=== PATIENT | female | born 2005 | race African-American/Black ===

== ENCOUNTER 2025-01-26 16:20 | Observation (INO) | payer MEDICAID ==
[~2025-01-26 16:20] MED LIST: NAPR-957 PO
[2025-01-26 18:12] LABS: Urine Protein, UAD Negative (Negative)
[2025-01-26 18:25] LABS: Vaginal Trichomonas Not Present
[2025-01-26 18:26] LABS: Vaginal Bacteria Few; Vaginal Clue Cells None Seen; Vaginal Epithelial Cells Few
[2025-01-26 18:32] LABS: Amphetamine Screen, Urine Neg (NEGATIVE); Barbiturate Scree,Urine Neg (NEGATIVE); Benzodiazephine Screen, Urine Neg (NEGATIVE); Cannabinoid Screen, Urine Neg (NEGATIVE); Cocaine Screen, Urine Neg (NEGATIVE); Opiate Scree,Urine Neg (NEGATIVE); Phencyclidine Screen, Urine Neg (NEGATIVE)
[2025-01-26 18:37] LABS: Hematocrit 40.4 % (36.0-46.0); Hemoglobin 14.1 g/dL (12.2-16.2); Mean Corpuscular Hemoglobin 31.5 pg (28.0-32.0); Mean Corpuscular Volume 90.0 fL (80.0-100.0); Nucleated Red Blood Cells % 0.0 %
--- NOTE | 2025-01-26 18:41 | DVH ---
OB ULTRASOUND, LIMITED CLINICAL INDICATION: unknown records TECHNIQUE: Multiple grayscale ultrasound and M-mode images were obtained of the pelvis for evaluation of intrauterine . COMPARISON: None FINDINGS: A single living fetus is seen in cephalic presentation. Biparietal diameter: 8.59 cm (34 weeks, 4 days) Head Circumference: 31.53 cm (35 weeks, 3 days) Abdomen Circumference: 28.4 cm (33 weeks, 0 days) Femur Length: 6.86 cm (35 weeks, 2 days) Estimated weight: 2328 grams (+/- 349 grams). Placenta: Anterior. Amniotic fluid: Visibly normal. RORY 9.15 cm heart rate: 148 beats/min. A complete anatomic survey was not performed on this exam. Cervix is 3.6 cm and closed. IMPRESSION: 1. Single living intrauterine with an estimated gestational age of 34 weeks, 4 days, lea esponding to an estimated date of delivery of 03/05/2025.
[2025-01-26 18:57] LABS: INR 0.97 (0.9-1.15); Partial Thromboplastin Time 29.3 SEC (24.5-34.5); Prothrombin Time 10.3 sec (9.3-11.8)
[2025-01-26 18:59] LABS: Alanine Aminotransferase 29 U/L (7-40); Albumin 4.2 g/dL (3.2-4.8); Alkaline Phosphatase 109 U/L (46-116); Anion Gap 12 (5-15); BUN/Creatinine Ratio 8.8 (10.0-20.0); Bilirubin, Total 0.7 mg/dL (0.2-1.0); Blood Urea Nitrogen < 5 mg/dL (9-23); Calcium 9.6 mg/dL (8.7-10.4); Carbon Dioxide 21 mmol/L (20-31); Chloride 107 mmol/L (98-107); Glucose 69 mg/dL (74-106); Potassium 4.1 mmol/L (3.5-5.1); Sodium 140 mmol/L (136-145); Total Protein 7.6 g/dL (5.7-8.2)
[2025-01-26] MEDS ORDERED: PREN1TAB71 PO (19:21)
--- NOTE | 2025-01-26 19:29 | DVHDS2 ---
Physician Discharge Progress N Final Diagnosis: Intact membranes, not in labor Operations or Procedures: Operations or Procedures S: 19y/o IUP @ 35.3 weeks GA arrives with complaints of LOF that happened immediately after showering at 1500 and did not reoccur. Patient reports adequate PNC by Dr. Torres, uncomplicated. Patient reports planning to return to [facility] to deliver baby. Denies UCs/VB/CLIFTON/vision changes/RUQ pain. Endorses +FM. PMH: Denies PSH: Denies FMH: Denies O: VSS- See CPN EFM Category 1 UC's Q2-8min, mild. abdomen palpates soft OB complete US with cervical length: WNL SSE by RN: negative nitrazine and pooling SVE: Closed/Thick/High by RN labs ordered GBS collected Labs Test 01/26/25 18:00 01/26/25 17:42 01/26/25 16:59 01/26/25 16:54 Range/Units Prothrombin Time 10.3 9.3-11.8 sec Prothrombin Time INR 0.97 0.9-1.15 Activated Partial Thromboplast Time 29.3 24.5-34.5 SEC Sodium Level 140 136-145 mmol/L Potassium Level 4.1 3.5-5.1 mmol/L Chloride Level 107 98-107 mmol/L Carbon Dioxide Level 21 20-31 mmol/L Anion Gap 12 5-15 Blood Urea Nitrogen < 5 L 9-23 mg/dL Creatinine 0.57 0.550-1.02 mg/dL Glomerular Filtration Rate Calc 134 >90 mL/min BUN/Creatinine Ratio 8.8 L 10.0-20.0 Serum Glucose 69 L 74-106 mg/dL Calcium Level 9.6 8.7-10.4 mg/dL Total Bilirubin 0.7 0.2-1.0 mg/dL Aspartate Amino Transferase (AST) 22 13-40 U/L Alanine Aminotransferase (ALT) 29 7-40 U/L Alkaline Phosphatase 109 46-116 U/L Total Protein 7.6 5.7-8.2 g/dL Albumin 4.2 3.2-4.8 g/dL Treponema pallidum Antibody Non-reactive Negative Rubella Antibody Positive White Blood Count 12.9 H 4.4-10.8 10^3/uL Red Blood Count 4.49 4.0-5.20 10^6/uL Hemoglobin 14.1 12.2-16.2 g/dL Hematocrit 40.4 36.0-46.0 % Mean Corpuscular Volume 90.0 80.0-100.0 fL Mean Corpuscular Hemoglobin 31.5 28.0-32.0 pg Mean Corpuscular Hemoglobin Concent 34.9 32.0-36.0 g/dL Red Cell Distribution Width 12.6 11.8-14.3 % Platelet Count 178 140-450 10^3/uL Mean Platelet Volume 9.3 6.9-10.8 fL Neutrophils (%) (Auto) 79.0 37.0-80.0 % Lymphocytes (%) (Auto) 12.7 10.0-50.0 % Monocytes (%) (Auto) 7.2 0.0-12.0 % Eosinophils (%) (Auto) 0.8 0.0-7.0 % Basophils (%) (Auto) 0.3 0.0-2.0 % Neutrophils # (Auto) 10.2 H 1.6-8.6 10 ^3/uL Lymphocytes # (Auto) 1.6 0.4-5.4 10 ^3/uL Monocytes # (Auto) 0.9 0-1.3 10 ^3/uL Eosinophils # (Auto) 0.1 0-0.8 10 ^3/uL Basophils # (Auto) 0 0-0.2 10 ^3/uL Nucleated Red Blood Cells 0.0 % Urine Opiates Screen Neg NEGATIVE Urine Fentanyl Screen Neg NEGATIVE Urine Barbiturates Screen Neg NEGATIVE Urine Phencyclidine Screen Neg NEGATIVE Urine Amphetamines Screen Neg NEGATIVE Urine Benzodiazepines Screen Neg NEGATIVE Urine Cocaine Screen Neg NEGATIVE Urine Cannabinoids Screen Neg NEGATIVE Urine Color Light-yellow Yellow Urine Clarity Clear Clear Urine pH 6.5 5.0-9.0 Urine Specific Otis 1.011 1.001-1.035 Urine Protein Negative Negative Urine Ketones Negative Negative Urine Blood Negative Negative /uL Urine Nitrite Negative Negative Urine Bilirubin Negative Negative Urine Urobilinogen Normal Negative mg/dL Urine Leukocyte Esterase 1+ Negative /uL Urine RBC 1 0 - 4 /hpf Urine Microscopic WBC 2 0-5 /HPF Urine Squamous Epithelial Cells Few <5 /hpf Urine Bacteria Few H None Seen /hpf Urine Glucose Normal Normal mg/dL Test 01/26/25 16:30 Range/Units Placental [id number]-1-[id number] Negative Vaginal WBC (Wet Prep) Rare Vaginal RBC (Wet Prep) Rare Vaginal Epithelial Cells (Wet Prep) Few Vaginal Bacteria (Wet Prep) Few Vaginal Trichomonas (Wet Prep) Not present Vaginal Yeast (Wet Prep) None seen Vaginal Clue Cells (Wet Prep) None seen A: 19y/o IUP @ 35.3 weeks Ruled out ROM Patient not in labor P: Discharge patient home to follow up with primary OB as scheduled on 01/29/25 PreE and PTL precautions given, [facility] endorsed Return to hospital PRN Dr. Reddy consulted, agrees with POC Other Interventions Other Interventions [place] [id number] Ph: [phone] DIAGNOSTIC IMAGING Diagnostic Imaging Report : [id number] Signed PATIENT: PRINCESS JOON ACCT: [id number] UNIT: [id number] : 2005 LOC: [facility] ROOM / BED: TRIAGE1 / A AGE / SEX: 19 / F ADM STATUS: ADM IN SERVICE 173 ORDERING PHYSICIAN: TOMEKA MORIN CNM PROCEDURE(s): OBUS - OB ULTRASOUND COMP GTR 14 WKS REASON: unknown records ORDER NUMBER(s): [id number], ACCESSION NUMBER(s): [id number] OB ULTRASOUND, LIMITED CLINICAL INDICATION: unknown records TECHNIQUE: Multiple grayscale ultrasound and M-mode images were obtained of the pelvis for evaluation of intrauterine . COMPARISON: None FINDINGS: A single living fetus is seen in cephalic presentation. Biparietal diameter: 8.59 cm (34 weeks, 4 days) Head Circumference: 31.53 cm (35 weeks, 3 days) Abdomen Circumference: 28.4 cm (33 weeks, 0 days) Femur Length: 6.86 cm (35 weeks, 2 days) Estimated weight: 2328 grams (+/- 349 grams). Placenta: Anterior. Amniotic fluid: Visibly normal. RORY 9.15 cm heart rate: 148 beats/min. A complete anatomic survey was not performed on this exam. Cervix is 3.6 cm and closed. IMPRESSION: 1. Single living intrauterine with an estimated gestational age of 34 weeks, 4 days, corresponding to an estimated date of delivery of 03/05/2025. ATED BY: OLGA AYALA MD DICTATED DATE/TIME: 01/26/251838 SIGNED BY: OLGA AYALA MD SIGNED DATE/TIME: 01/26/251838 CC: Condition on Discharge: Stable Disposition: Home Discharge Instructions: Diet: Regular Activity: No Restrictions, As Tolerated Follow Up/Referral: Medications: See Med list Follow Up Care: Specialist: Follow up with primary OB as scheduled on Saturday01/29/25 Discharge Statement: "Patient was advised to return to the ER or call 911 if any headaches, dizziness, shortness of breath, chest pain, abdominal pain, bleeding, fevers, or worsening of medical condition. Patient was counseled about treatment plan, medications, possible side effects, patientverbalized understanding. All questions were answered to the best of my ability. This discharge took greater then 30 minutes in planning, reviewing documentation, counseling the patient, and discussing with other team members." Visit Coding OBGYN Date of Service: Jan 26, 2025 Billing Provider: TOMEKA MORIN CNM FEATHER BALER Common Visit Codes: 51122-WGHPCOG OBS CARE (HIGH) FEATHER BALER Procedure Codes: 00243-79- NON-STRESS TEST CHRISTINE PHANW Jan 26, 2025 19:29
[2025-01-27 23:07] LABS: Chlamydia Trachomatis, NAA Negative (Negative); Neisseria gonorrhoeae, NAA Negative (Negative)
== END 2025-01-26 19:35 | disposition home or self-care (01) ==
LOC: UNDOADMOB 16:20 → LDRP 16:20 → UNDODISOB 19:35
PROVIDERS: ADMIT Obstetrics & Gynecology; ATTEND Obstetrics & Gynecology
DX: O42.913 Preterm premature rupture of membranes, unspecified as to length of time between rupture and onset of labor, third trimester (principal); R79.1 Abnormal coagulation profile; Z3A.35 35 weeks gestation of pregnancy; Z98.890 Other specified postprocedural states; Z79.899 Other long term (current) drug therapy
CPT/HCPCS: 36415; 59025; 76805; 80053; 80307; 81001; 81002; 83036; 84112; 85025; 85610; 85730; 86703; 86762; 86780; 86803; 86850; 86900; 86901; 87081; 87210; 87340; 87491; 87591; 94760; G0378

== ENCOUNTER 2025-02-17 06:52 | Observation (INO) | payer MEDICAID ==
[~2025-02-17 06:52] MED LIST changes: +PREN1TAB71 PO
--- NOTE | 2025-02-17 13:12 | DVHDS2 ---
Physician Discharge Progress N Final Diagnosis: labor check 38wks Operations or Procedures: Operations or Procedures nst reactive reviwed,msono Condition on Discharge: Good Disposition: Home Discharge Instructions: Diet: Regular Activity: Light activity Medications: na Follow Up Care: Specialist: 1w Discharge Statement: "Patient was advised to return to the ER or call 911 if any headaches, dizziness, shortness of breath, chest pain, abdominal pain, bleeding, fevers, or worsening of medical condition. Patient was counseled about treatment plan, medications, possible side effects, patientverbalized understanding. All questions were answered to the best of my ability. This discharge took greater then 30 minutes in planning, reviewing documentation, counseling the patient, and discussing with other team members." Visit Coding OBGYN Date of Service: Feb 17, 2025 Billing Provider: HOPE DAMON DO [employer] Common Visit Codes: [id number] OBS CARE (HIGH) [employer] Procedure Codes: 70920-82- NON-STRESS TEST HOPE DAMON DO Feb 17, 2025 13:12
== END 2025-02-17 08:26 | disposition left against medical advice (07) ==
LOC: UNDOADMOB 06:52 → LDRP 06:52
PROVIDERS: ADMIT Obstetrics & Gynecology; ATTEND Obstetrics & Gynecology
DX: O62.9 Abnormality of forces of labor, unspecified (principal); Z3A.38 38 weeks gestation of pregnancy; Z79.899 Other long term (current) drug therapy; Z98.890 Other specified postprocedural states
CPT/HCPCS: 59025; 81002; 94760; G0378